=== PATIENT | female | born 1985 | race Caucasian/White ===

== ENCOUNTER 2019-12-14 09:48 | Emergency (ER) | payer BC ==
[2019-12-14] MEDS ORDERED: Ketorolac 30 MG/ML SDV IVPUSH ONE (10:21)
[2019-12-14] MEDS ORDERED: Sodium Chloride 0.9% 10 ML Syringe FLUSH PRN (10:22)
[2019-12-14] MEDS ORDERED: Prochlorperazine 10 MG/2 ML SDV IVPUSH ONE (10:22)
[2019-12-14] MEDS ORDERED: diphenhydrAMINE 50 MG/ML SDV IVPUSH ONE (10:22)
--- NOTE | 2019-12-14 10:25 | EDM.PDOC ---
ED HPI GENERAL MEDICAL PROBLEM - General Chief Complaint: Headache Stated Complaint: HEADACHE NUMBNESS ON LEFT SIDE Time Seen by Provider: 12/14/19 10:16 Source of Information: Reports: Patient, Family, RN Notes Reviewed History Limitations: Reports: No Limitations - History of Present Illness INITIAL COMMENTS - FREE TEXT/NARRATIVE: 34-year-old female presents emergency department today complaint of headache, she does have a history of migraines but has not had one for several years she states this 1 came on last night she can usually control with Excedrin but it is more intense than prior headaches, some photophobia and nausea with this headache she also experienced some numbness and tingling on the left side of her body with the intensity of the headache - Related Data Allergies Allergy/AdvReac Type Severity Reaction Status Date / Time No Known Allergies Allergy Verified 12/14/19 10:01 Home Meds: Home Meds Loratadine [Claritin] 1 tab PO DAILY 12/14/19 [History] Omeprazole 1 tab PO DAILY 12/14/19 [History] valACYclovir [Valtrex] 1 tab PO DAILY 12/14/19 [History] Past Medical History Neurological History: Reports: Migraines - Infectious Disease History Infectious Disease History: Reports: Chicken Pox - Past Surgical History HEENT Surgical History: Reports: Tonsillectomy GI Surgical History: Reports: Appendectomy Social & Family History - Tobacco Use Smoking Status *Q: Never Smoker - Caffeine Use Caffeine Use: Reports: Coffee, Soda - Recreational Drug Use Recreational Drug Use: No ED ROS GENERAL - Review of Systems Review Of Systems: See Below Constitutional: Denies: Fever, Chills HEENT: Reports: Eye Pain Respiratory: Reports: No Symptoms Cardiovascular: Reports: No Symptoms GI/Abdominal: Reports: Nausea Neurological: Reports: Headache ED EXAM, NEURO - Physical Exam Exam: See Below Exam Limited By: No Limitations General Appearance: Alert Eye Exam: Bilateral Eye: EOMI, Normal Fundi, Normal Inspection, PERRL Respiratory/Chest: No Respiratory Distress Course - Vital Signs Last Recorded V/S: Last Vital Signs Temp 97.4 F 12/14/19 10:06 Pulse 71 12/14/19 10:06 Resp 16 12/14/19 10:06 BP 140/97 H 12/14/19 10:06 Pulse Ox 98 12/14/19 10:06 - Orders/Labs/Meds Orders: Active Orders 24 hr Category Date Time Status Peripheral IV Care [RC] . DIRECTED Care 12/14/19 10:22 Active Sodium Chloride 0.9% [Normal Saline] 1,000 ml Med 12/14/19 10:30 Active IV ASDIRECTED Sodium Chloride 0.9% [Saline Flush] Med 12/14/19 10:22 Active 10 ml FLUSH ASDIRECTED PRN Peripheral IV Insertion Adult [OM.PC] Urgent Oth 12/14/19 10:21 Ordered Medication Orders Sodium Chloride (Normal Saline) 1,000 mls @ 999 mls/hr IV ASDIRECTED REMIGIO Last Admin: 12/14/19 11:04 Dose: 999 mls/hr Documented by: HAIDER Sodium Chloride (Saline Flush) 10 ml FLUSH ASDIRECTED PRN PRN Reason: Keep Vein Open Last Admin: 12/14/19 11:14 Dose: 10 ml Documented by: HAIDER Meds: Medications Generic Name Dose Route Start Last Admin Trade Name Freq PRN Reason Stop Dose Admin Sodium Chloride 1,000 mls @ 999 mls/hr 12/14/19 10:30 12/14/19 11:04 Normal Saline IV 999 mls/hr ASDIRECTED REMIGIO Administration Sodium Chloride 10 ml 12/14/19 10:22 12/14/19 11:14 Saline Flush FLUSH 10 ml ASDIRECTED PRN Administration Keep Vein Open Discontinued Medications Generic Name Dose Route Start Last Admin Trade Name Freq PRN Reason Stop Dose Admin Diphenhydramine HCl 25 mg 12/14/19 10:22 12/14/19 11:03 Benadryl IVPUSH 12/14/19 10:23 25 mg ONETIME ONE Administration Ketorolac Tromethamine 30 mg 12/14/19 10:21 12/14/19 11:02 Toradol IVPUSH 12/14/19 10:22 30 mg ONETIME ONE Administration Prochlorperazine Edisylate 5 mg 12/14/19 10:22 12/14/19 11:03 Compazine IVPUSH 12/14/19 10:23 5 mg ONETIME ONE Administration Departure - Departure Time of Disposition: 12:16 Disposition: Home, Self-Care 01 Condition: Fair Clinical Impression: Migraine - Discharge Information Instructions: Migraine Headache, [id number] Referrals: PCP,None [Primary Care Provider] - Forms: ED Department Discharge Additional Instructions: Continue with regular medications, please follow-up with your primary care upon return home if not better call return to the emergency department worsening of symptoms Sepsis Event Note (ED) - Evaluation Sepsis Screening Result: No Definite Risk - Focused Exam Vital Signs: Vital Signs Temp Pulse Resp BP Pulse Ox 12/14/19 10:06 97.4 F 71 16 140/97 H 98 12/14/19 10:04 97.4 F 71 16 140/97 H 98 - My Orders Last 24 Hours: My Active Orders 12/14/19 10:21 Peripheral IV Insertion Adult [OM.PC] Urgent 12/14/19 10:22 Peripheral IV Care [RC] . DIRECTED Sodium Chloride 0.9% [Saline Flush] 10 ml FLUSH ASDIRECTED PRN 12/14/19 10:30 Sodium Chloride 0.9% [Normal Saline] 1,000 ml IV ASDIRECTED - Assessment/Plan Last 24 Hours: My Active Orders 12/14/19 10:21 Peripheral IV Insertion Adult [OM.PC] Urgent 12/14/19 10:22 Peripheral IV Care [RC] . DIRECTED Sodium Chloride 0.9% [Saline Flush] 10 ml FLUSH ASDIRECTED PRN 12/14/19 10:30 Sodium Chloride 0.9% [Normal Saline] 1,000 ml IV ASDIRECTED Plan: Assessment Acuity = acute Site and laterality = migraine Etiology = unknown Manifestations = none Location of injury = Home Lab values = none Plan Good improvement with 1 L fluids, Toradol, Compazine and Benadryl she will return to home follow-up primary care at that time if not better This note was dictated using [email or web address] voice recognition software please call with any questions on syntax or grammar.
[2019-12-14] MEDS ORDERED: Sodium Chloride 0.9% 1,000 ML IV SCH (10:30)
== END 2019-12-14 13:02 | disposition home or self-care (01) ==
LOC: JP.ED 09:48
DX: G43.909 Migraine, unspecified, not intractable, without status migrainosus (principal); Z90.49 Acquired absence of other specified parts of digestive tract; Z79.899 Other long term (current) drug therapy
CPT/HCPCS: 96374; 96375; 99283; J0780; J1200; J1885; J7030